=== PATIENT | male | born 1945 | race Caucasian/White ===

== ENCOUNTER 2024-05-21 07:18 | Day surgery (SDC) | payer MEDICARE, OTHER ==
[2024-05-21] MEDS: Lactated Ringers 1,000 ML IV SCH (07:42)
[2024-05-21] MEDS ORDERED: fentaNYL 100 MCG/2 ML SDV ONE (08:14)
[2024-05-21] MEDS ORDERED: Propofol 200 MG/20 ML SDV ONE ×2 (08:14→10:01)
[2024-05-21 11:35] VITALS: BP 123/89; PULSE 74
== END 2024-05-21 11:36 | disposition home or self-care (01) ==
LOC: VM.SDS 07:18
PROVIDERS: ATTEND Family Medicine
DX: Z12.11 Encounter for screening for malignant neoplasm of colon (principal); D12.6 Benign neoplasm of colon, unspecified; K51.40 Inflammatory polyps of colon without complications; K57.30 Diverticulosis of large intestine without perforation or abscess without bleeding; Z86.0100 Personal history of colon polyps, unspecified; I10 Essential (primary) hypertension; E78.5 Hyperlipidemia, unspecified; K21.9 Gastro-esophageal reflux disease without esophagitis
CPT/HCPCS: 00811; 88305; 99100; J2704; J3010; J7120